=== PATIENT | male | born 1975 | race Caucasian/White ===

== ENCOUNTER 2017-10-18 14:29 | Emergency (ER) | payer OTHER ==
[~2017-10-18] VITALS: Ht 190.5 cm; Wt 120.2 kg
== END 2017-10-18 16:42 | disposition home or self-care (01) ==
LOC: ED 14:29
DX: S80.11XA Contusion of right lower leg, initial encounter (principal); Z88.0 Allergy status to penicillin; W23.0XXA Caught, crushed, jammed, or pinched between moving objects, initial encounter; Y93.89 Activity, other specified; Y92.89 Other specified places as the place of occurrence of the external cause; Y99.9 Unspecified external cause status

== ENCOUNTER 2017-10-26 23:21 | Emergency (ER) | payer OTHER ==
[~2017-10-26] VITALS: Ht 190.5 cm; Wt 120.2 kg
[2017-10-26] MEDS ORDERED: CLINDAMYCIN HC300 MG PO (23:44)
[2017-10-26] MEDS ORDERED: ANAPROX DS550 MG PO (23:45)
== END 2017-10-27 00:16 | disposition home or self-care (01) ==
LOC: ED 23:21
DX: L08.89 Other specified local infections of the skin and subcutaneous tissue (principal); Z88.0 Allergy status to penicillin

== ENCOUNTER 2017-12-20 21:48 | Emergency (ER) | payer OTHER ==
[~2017-12-20] VITALS: Ht 190.5 cm; Wt 117.9 kg
[~2017-12-20 21:48] MED LIST: ANAPROX DS550 MG PO; CLINDAMYCIN HC300 MG PO
[2017-12-20] MEDS ORDERED: TAMIFLU 75MG CA75 MG PO (22:38)
== END 2017-12-20 23:00 | disposition home or self-care (01) ==
LOC: ED 21:48
DX: J10.1 Influenza due to other identified influenza virus with other respiratory manifestations (principal); Z88.0 Allergy status to penicillin

== ENCOUNTER → 2022-12-10 | Outpatient (CLI) | payer OTHER ==
[~2022-12-10] MED LIST changes: +TAMIFLU 75MG CA75 MG PO
== END | disposition home or self-care (01) ==
LOC: CT 12:45
PROVIDERS: ATTEND Physician Assistant Medical
DX: E27.8 Other specified disorders of adrenal gland (principal); K76.0 Fatty (change of) liver, not elsewhere classified; N28.89 Other specified disorders of kidney and ureter; D35.00 Benign neoplasm of unspecified adrenal gland

== ENCOUNTER → 2022-12-27 | Outpatient (CLI) | payer OTHER | END | disposition home or self-care (01) | LOC: MRI 01:29 | PROVIDERS: ATTEND Physician Assistant Medical | DX: N28.9 Disorder of kidney and ureter, unspecified (principal); N28.1 Cyst of kidney, acquired; K76.0 Fatty (change of) liver, not elsewhere classified; D35.01 Benign neoplasm of right adrenal gland; Z90.49 Acquired absence of other specified parts of digestive tract ==

== ENCOUNTER → 2023-05-19 | Outpatient (CLI) | payer OTHER | END | disposition home or self-care (01) | LOC: MRI 05-17 13:00 | PROVIDERS: ATTEND Urology | DX: K76.0 Fatty (change of) liver, not elsewhere classified (principal); N28.1 Cyst of kidney, acquired; D35.01 Benign neoplasm of right adrenal gland; Z90.49 Acquired absence of other specified parts of digestive tract ==

== ENCOUNTER → 2023-12-20 | Outpatient (CLI) | payer OTHER ==
[~2023-12-20] MED LIST changes: +GADOTERATE MEGLUMINE 10 MMOL/20 ML VIAL IV ONE; +GADOTERATE MEGLUMINE 5 MMOL/10 ML VIAL IV ONE; +SODIUM CHLORIDE 0.9% 50 ML IV ONE
== END | disposition home or self-care (01) ==
LOC: MRI 01:56
PROVIDERS: ATTEND Urology
DX: N28.89 Other specified disorders of kidney and ureter (principal); E27.9 Disorder of adrenal gland, unspecified; N28.1 Cyst of kidney, acquired; K76.0 Fatty (change of) liver, not elsewhere classified; Z90.49 Acquired absence of other specified parts of digestive tract

== ENCOUNTER → 2024-02-03 | Outpatient (CLI) | payer OTHER ==
[~2024-02-03] MED LIST changes: -GADOTERATE MEGLUMINE 10 MMOL/20 ML VIAL IV ONE; -GADOTERATE MEGLUMINE 5 MMOL/10 ML VIAL IV ONE; -SODIUM CHLORIDE 0.9% 50 ML IV ONE
[2024-02-03 09:11] LABS: BASO % 0.7 % (0.0-1.0); EOS # 0.1 10*3/uL (0.0-0.4); EOS % 1.3 % (1.0-4.0); HEMATOCRIT 47.6 % (42.0-52.0); LYMPH # 1.2 10*3/uL (1.3-4.4); LYMPH % 25.9 % (27.0-41.0); MEAN CELL VOLUME 95.2 fl (80.0-94.0); MEAN CORPUSCULAR HGB 31.8 pg (27.0-31.0); MEAN CORPUSCULAR HGB CONC 33.4 g/dl (33.0-37.0); MEAN PLATELET VOLUME 11.1 fl (9.6-12.3); MONO # 0.4 10*3/uL (0.1-1.0); MONO % 9.1 % (3.0-9.0); NEUT # 2.9 10*3/uL (2.3-7.9); NEUT % 62.8 % (47.0-73.0); PLATELET COUNT AUTOMATED 177 10*3/uL (130-400); RED CELL DISTRI WIDTH 12.4 % (0-14.5); WHITE BLOOD COUNT 4.6 10*3/uL (4.8-10.8)
[2024-02-03 10:07] LABS: ALKALINE PHOSPHATASE 49 U/L (46-116); BUN 12 mg/dl (9-23); CHLORIDE 107 mmol/L (98-107); CHOLESTEROL 127 mg/dL (<200); LDL CHOLESTEROL 77 mg/dL (9-159); POTASSIUM 3.9 mmol/L (3.4-5.1); SGPT/ALT 55 U/L (5-49); TOTAL PROTEIN 6.4 gm/dL (6.0-8.0); TRIGLYCERIDES 61 mg/dl (<150)
== END | disposition home or self-care (01) ==
LOC: LAB 08:20
PROVIDERS: Nurse Practitioner Family; ATTEND Urology
DX: Z13.29 Encounter for screening for other suspected endocrine disorder (principal); Z13.6 Encounter for screening for cardiovascular disorders; E27.9 Disorder of adrenal gland, unspecified; E55.9 Vitamin D deficiency, unspecified

== ENCOUNTER → 2024-03-26 | Outpatient (CLI) | payer OTHER ==
[2024-03-26 09:06] LABS: HEMATOCRIT 47.5 % (42.0-52.0); MEAN CELL VOLUME 95.4 fl (80.0-94.0); MEAN CORPUSCULAR HGB 32.1 pg (27.0-31.0); MEAN CORPUSCULAR HGB CONC 33.7 g/dl (33.0-37.0); MEAN PLATELET VOLUME 10.6 fl (9.6-12.3); RED BLOOD COUNT 4.98 10*6/uL (4.50-5.90); RED CELL DISTRI WIDTH 12.5 % (0-14.5); WHITE BLOOD COUNT 5.6 10*3/uL (4.8-10.8)
[2024-03-26 10:04] LABS: ALKALINE PHOSPHATASE 42 U/L (46-116); BUN 12 mg/dl (9-23); CHLORIDE 107 mmol/L (98-107); CHOLESTEROL 128 mg/dL (<200); LDL CHOLESTEROL 74 mg/dL (9-159); POTASSIUM 3.9 mmol/L (3.4-5.1); SGPT/ALT 45 U/L (5-49); TOTAL PROTEIN 6.6 gm/dL (6.0-8.0); TRIGLYCERIDES 64 mg/dl (<150)
== END | disposition home or self-care (01) ==
LOC: LAB 08:56
PROVIDERS: ATTEND Nurse Practitioner Family
DX: R71.8 Other abnormality of red blood cells (principal)

== ENCOUNTER → 2024-04-12 | Outpatient (CLI) | payer OTHER | END | disposition home or self-care (01) | LOC: US 01:04 | PROVIDERS: ATTEND Family Medicine | DX: K76.0 Fatty (change of) liver, not elsewhere classified (principal); Z90.49 Acquired absence of other specified parts of digestive tract; E27.8 Other specified disorders of adrenal gland ==

== ENCOUNTER → 2024-06-13 | Outpatient (CLI) | payer OTHER ==
[2024-06-13 09:54] LABS: HEMATOCRIT 50.4 % (42.0-52.0); MEAN CELL VOLUME 94.6 fl (80.0-94.0); MEAN CORPUSCULAR HGB 31.1 pg (27.0-31.0); MEAN CORPUSCULAR HGB CONC 32.9 g/dl (33.0-37.0); MEAN PLATELET VOLUME 10.5 fl (9.6-12.3); RED BLOOD COUNT 5.33 10*6/uL (4.50-5.90); RED CELL DISTRI WIDTH 12.4 % (0-14.5)
[2024-06-13 10:23] LABS: ALKALINE PHOSPHATASE 51 U/L (46-116); BUN 12 mg/dl (9-23); CHLORIDE 106 mmol/L (98-107); POTASSIUM 4.2 mmol/L (3.4-5.1); SGPT/ALT 75 U/L (5-49); TOTAL PROTEIN 6.9 gm/dL (6.0-8.0)
== END | disposition home or self-care (01) ==
LOC: LAB 00:47
PROVIDERS: ATTEND Family Medicine
DX: R10.33 Periumbilical pain (principal); R71.8 Other abnormality of red blood cells

== ENCOUNTER → 2024-07-20 | Outpatient (CLI) | payer OTHER | END | disposition home or self-care (01) | LOC: LAB 00:31 | PROVIDERS: ATTEND Family Medicine | DX: R73.01 Impaired fasting glucose (principal) ==

== ENCOUNTER → 2024-08-15 | Outpatient (CLI) | payer OTHER | END | disposition home or self-care (01) | LOC: RAD 09:14 | PROVIDERS: ATTEND Family Medicine | DX: R06.02 Shortness of breath (principal); R05.9 Cough, unspecified ==